=== PATIENT | female | born 2000 | race Caucasian/White ===

== ENCOUNTER 2022-02-02 00:10 | Emergency (ER) | payer OTHER ==
[2022-02-02] MEDS ORDERED: NA CHLORIDE 0.9% 1,000 ML ONE (00:56)
[2022-02-02 01:23] LABS: Urine Blood 3+ (Negative); Urine Glucose Negative (Negative); Urine Protein 2+ (Negative)
--- NOTE | 2022-02-02 01:58 | ER ---
Nurse's Notes [facility] Name: Nahomy Chavez Age: 21 yrs Sex: Female : 2000 Arrival Date: 02/02/2022 Time: 00:13 Bed 7 Private MD: Diagnosis: Dysmenorrhea, unspecified Presentation: 02/02 00:50 Chief complaint: Patient states: I am currently on my period. I am bleeding but it jb4 seems like the normal amount. I am having worse than normal abdominal pain and wanted to get checked out. Coronavirus screen: At this time, the client does not indicate any symptoms associated with coronavirus-19. Ebola Screen: No symptoms or risks identified at this time. Initial Sepsis Screen: Does the patient meet any 2 criteria? No. Patient's initial sepsis screen is negative. Does the patient have a suspected source of infection? No. Patient's initial sepsis screen is negative. Risk Assessment: Do you want to hurt yourself or someone else? Patient reports no desire to harm self or others. Onset of symptoms was February 02, 2022. Transition of care: patient was not received from another setting of care. 00:50 Method Of Arrival: Ambulatory jb4 00:50 Acuity: YOBANI 3 jb4 Triage Assessment: 02:10 General: Appears in no apparent distress. Behavior is calm, cooperative. 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 - Social history:: Smoking status: Patient denies any tobacco usage or history of. Patient uses alcohol, occasionally. - Family history:: not pertinent. Screenin:06 Abuse screen: Denies threats or abuse. Denies injuries from another. Nutritional tw5 screening: No deficits noted. Tuberculosis screening: No symptoms or risk factors identified. Fall Risk None identified. Assessment: 01:06 General: Reports "for the past 5 hours I have been cramping really bad with heavy tw5 bleeding. However I just went to the bathroom and passed a really larg clot, and now I feel better." Patient denies being . "Now it just feels like my regular period.". Pain: Complains of pain in suprapubic area, right lower quadrant and left lower quadrant Pain currently is 4 out of 10 on a pain scale. Quality of pain is described as crampy. Neuro: No deficits noted. : Urine is blood tinged, Reports vaginal bleeding that is bright red, with clots, heavy flow. Vital Signs: 00:50 BP 106 / 76; Pulse 65; Resp 16; Temp 97.8(TE); Pulse Ox 100% on R/A; Weight 65.77 kg jb4 (R); Height 5 ft. 6 in. (167.64 cm) (R); Pain 9/10; 01:06 BP 97 / 59; Pulse 49; Resp 18; Pulse Ox 100% on R/A; tw5 00:50 Body Mass Index 23.40 (65.77 kg, 167.64 cm) jb4 ED Course: 00:13 Patient arrived in ED. bp1 00:46 Wesley Schilling MD is Attending Physician. michael 00:48 Sri Paris is Primary Nurse. tw5 00:52 Triage completed. jb4 00:52 Arm band placed on right wrist. jb4 01:06 Patient has correct armband on for positive identification. Placed in gown. Bed in low tw5 position. Call light in reach. Side rails up X 1. bull bucker on. Pulse ox on. NIBP on. Door closed. Noise minimized. Moved to private room. Warm blanket given. Verbal reassurance given. 01:06 Initial lab(s) drawn, by me, sent to lab. Urine collected:. Inserted saline lock: 20 tw5 gauge in right antecubital area, using aseptic technique. Blood collected. 01:16 Quantitative Hcg Sent. tw5 01:16 Abo/rh Typing Sent. tw5 01:16 Basic Metabolic Panel Sent. tw5 01:16 CBC with Diff Sent. tw5 01:46 US Transvaginal Ob In Process Unspecified. EDMS 01:57 Mona Rivera MD is Referral Physician. michael 02:10 No provider procedures requiring assistance completed. IV discontinued, intact, kl bleeding controlled, No redness/swelling at site. Administered Medications: 01:16 Drug: NS 0.9% 1000 ml Route: IV; Rate: 1 bolus; Site: right antecubital; tw5 02:08 Follow up: IV Status: Completed infusion; IV Intake: 1000ml 02:09 Not Given (Patient Refused): Ketorolac 30 mg IVP once kl Medication: 01:06 VIS not applicable for this client. tw5 Intake: 02:08 IV: 1000ml; Total: 1000ml. Outcome: 01:57 Discharge ordered by . michael 02:10 Discharged to home ambulatory. 02:10 Condition: stable 02:10 Discharge instructions given to patient, Instructed on discharge instructions, follow up and referral plans. medication usage, Demonstrated understanding of instructions, follow-up care, medications, Prescriptions given X 1. 02:11 Patient left the ED. Signatures: Dispatcher [employer] EDMS Janine Vences RN RN kl Anderson, Corey, MD MD cha Bryson, James, RN RN jbVanessa Owens Tiffany 5
--- NOTE | 2022-02-02 01:58 | EDPHYS ---
Physician Documentation [facility] Name: Nahomy Chavez Age: 21 yrs Sex: Female : 2000 Arrival Date: 02/02/2022 Time: 00:13 Bed 7 Private MD: ED Physician Wesley Schilling HPI: 02/02 01:54 This 21 yrs old Female presents to ER via Ambulatory with complaints of michael Vaginal Bleeding, Abdominal Cramping. 01:54 The patient presents with vaginal bleeding that is heavy. Onset: The symptoms/episode michael began/occurred just prior to arrival, last night. Modifying factors: The symptoms are alleviated by nothing, the symptoms are aggravated by nothing. Associated signs and symptoms: The patient has no apparent associated signs or symptoms. Severity of symptoms: At their worst the symptoms were moderate, in the emergency department the symptoms have improved, moderately. The patient has experienced similar episodes in the past. 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 - Social history:: Smoking status: Patient denies any tobacco usage or history of. Patient uses alcohol, occasionally. - Family history:: not pertinent. ROS: 01:54 Constitutional: Negative for fever, chills, and weight loss, Eyes: Negative for injury, michael pain, redness, and discharge, ENT: Negative for injury, pain, and discharge, Neck: Negative for injury, pain, and swelling, Cardiovascular: Negative for chest pain, palpitations, and edema, Respiratory: Negative for shortness of breath, cough, wheezing, and pleuritic chest pain, Back: Negative for injury and pain, : Negative for injury, bleeding, discharge, and swelling, MS/Extremity: Negative for injury and deformity, Skin: Negative for injury, rash, and discoloration, Neuro: Negative for headache, weakness, numbness, tingling, and seizure, Psych: Negative for depression, anxiety, suicide ideation, homicidal ideation, and hallucinations, Allergy/Immunology: Negative for hives, rash, and allergies, Endocrine: Negative for neck swelling, polydipsia, polyuria, polyphagia, and marked weight changes. 01:54 Abdomen/GI: Positive for abdominal pain, of the suprapubic area. Exam: 01:54 Constitutional: This is a well developed, well nourished patient who is awake, alert, michael and in no acute distress. Head/Face: Normocephalic, atraumatic. Eyes: Pupils equal round and reactive to light, extra-ocular motions intact. Lids and lashes normal. Conjunctiva and sclera are non-icteric and not injected. Cornea within normal limits. Periorbital areas with no swelling, redness, or edema. ENT: Nares patent. No nasal discharge, no septal abnormalities noted. Tympanic membranes are normal and external auditory canals are clear. Oropharynx with no redness, swelling, or masses, exudates, or evidence of obstruction, uvula midline. Mucous membranes moist. Neck: Trachea midline, no thyromegaly or masses palpated, and no cervical lymphadenopathy. Supple, full range of motion without nuchal rigidity, or vertebral point tenderness. No Meningismus. Chest/axilla: Normal chest wall appearance and motion. Nontender with no deformity. No lesions are appreciated. Cardiovascular: Regular rate and rhythm with a normal S1 and S2. No gallops, murmurs, or rubs. Normal PMI, no JVD. No pulse deficits. Respiratory: Lungs have equal breath sounds bilaterally, clear to auscultation and percussion. No rales, rhonchi or wheezes noted. No increased work of breathing, no retractions or nasal flaring. Abdomen/GI: Soft, non-tender, with normal bowel sounds. No distension or tympany. No guarding or rebound. No evidence of tenderness throughout. Back: No spinal tenderness. No costovertebral tenderness. Full range of motion. Skin: Warm, dry with normal turgor. Normal color with no rashes, no lesions, and no evidence of cellulitis. MS/ Extremity: Pulses equal, no cyanosis. Neurovascular intact. Full, normal range of motion. Neuro: Awake and alert, GCS 15, oriented to person, place, time, and situation. Cranial nerves II-XII grossly intact. Motor strength 5/5 in all extremities. Sensory grossly intact. Cerebellar exam normal. Normal gait. Psych: Awake, alert, with orientation to person, place and time. Behavior, mood, and affect are within normal limits. Vital Signs: 00:50 BP 106 / 76; Pulse 65; Resp 16; Temp 97.8(TE); Pulse Ox 100% on R/A; Weight 65.77 kg jb4 (R); Height 5 ft. 6 in. (167.64 cm) (R); Pain 9/10; 01:06 BP 97 / 59; Pulse 49; Resp 18; Pulse Ox 100% on R/A; tw5 00:50 Body Mass Index 23.40 (65.77 kg, 167.64 cm) jb4 MDM: 00:47 Patient medically screened. [facility] 02/02 00:47 Order name: Abo/rh Typing [facility] 02/02 00:47 Order name: Basic Metabolic Panel [facility] 02/02 00:47 Order name: CBC with Diff [facility] 02/02 00:47 Order name: Quantitative Hcg [facility] 02/02 01:23 Order name: Urine --Ancillary (enter results) mw2 02/02 01:24 Order name: Urine Dipstick-Ancillary; Complete Time: 01:46 EDMS 02/02 00:47 Order name: IV Saline Lock; Complete Time: 01:16 [facility] 02/02 00:47 Order name: Labs collected and sent; Complete Time: 01:16 [facility] 02/02 00:47 Order name: NPO; Complete Time: 01:16 [facility] 02/02 00:47 Order name: Urine Dipstick-Ancillary (obtain specimen); Complete Time: 01:22 [facility] 02/02 00:47 Order name: Urine Test (obtain specimen); Complete Time: 01:22 [facility] 02/02 00:47 Order name: US Transvaginal Ob [facility] Administered Medications: 01:16 Drug: NS 0.9% 1000 ml Route: IV; Rate: 1 bolus; Site: right antecubital; tw5 02:08 Follow up: IV Status: Completed infusion; IV Intake: 1000ml kl 02:09 Not Given (Patient Refused): Ketorolac 30 mg IVP once kl Disposition Summary: 02/02/22 01:57 Discharge Ordered Location: Home michael Problem: new michael Symptoms: have improved michael Condition: Stable michael Diagnosis - Dysmenorrhea, unspecified michael Followup: michael - With: Private Physician - When: 2 - 3 days - Reason: Recheck today's complaints, Continuance of care, Re-evaluation by your physician Followup: michael - With: Mona Rivera MD - When: 2 - 3 days - Reason: Recheck today's complaints, Continuance of care, Re-evaluation by your physician Discharge Instructions: - Discharge Summary Sheet michael - Dysmenorrhea michael - Dysmenorrhea, [id number] michael Forms: - Medication Reconciliation Form michael - Thank You Letter michael - Antibiotic Education michael - Prescription Opioid Use michael Prescriptions: - Diclofenac Sodium 75 mg Oral tablet,delayed release (DR/EC) - take 1 tablet by ORAL route 2 times per day; 20 tablet; Refills: 0, Product michael Selection Permitted Signatures: Dispatcher [employer] EDWesley Victoria MD MD cha Bryson, James, RN RN jb4 Sri Paris tw5 Janine Venecs RN kl
[2022-02-02 02:16] LABS: Absolute Lymphocytes (CBC) 1.6 K/uL (0.7-4.9); Hematocrit 38.3 % (36.0-45.0); Lymphocytes % 19.6 % (15.3-44.8); RBC Red Blood Cell Count 4.26 M/uL (3.86-4.86)
[2022-02-02 02:19] LABS: BUN Blood Urea Nitrogen 12 mg/dL (7-18); Bicarbonate 28 mmol/L (21-32); Glomerular Filtration Rate 114 ml/min (=/>90); Glucose Level 105 mg/dL (74-106); Potassium 3.8 mmol/L (3.5-5.1); Sodium Level 138 mmol/L (136-145)
[2022-02-02 02:22] LABS: HCG, Quantitative < 1 mIU/mL (1-3)
[2022-02-02 02:51] VITALS: TEMP 97.8; O2SAT 100
[2022-02-02 02:57] VITALS: BP 97/59
--- NOTE | 2022-02-02 16:07 | RAD REPORT ---
EXAM DESCRIPTION: US PELVIS CLINICAL HISTORY: Pelvic pain. COMPARISON: None. TECHNIQUE: Grayscale, color Doppler, and spectral Doppler ultrasound images of the pelvis were obtai alexandro. FINDINGS: The uterus is anteverted and measures 7.0 x 2.9 x 3.7 cm. The endometrium is 5 mm in thick ness. No intrauterine fibroids. The cervix is closed. The right ovary was not seen due to overlying bowel gas. Left ovary measures 1.6 x 1.0 x 1.2 cm and c ontains normal color Doppler blood flow. No pelvic free fluid is seen. IMPRESSION: No acute intrapelvic findings. Electronically signed by: Rambo Angulo MD 02/02/2022 10:40 PM CDT Due to temporary technical issues with the PACS/Fluency reporting system, reports are being signed by the in house radiologists without review as a courtesy to insure prompt reporting. The interpreting radiologist is fully responsible for the content of the report.
== END 2022-02-02 02:11 | disposition home or self-care (01) ==
LOC: ER 00:10
DX: N94.6 Dysmenorrhea, unspecified (principal)
CPT/HCPCS: 85025; 80048; 36415; 86900; 81025; 86901; 84702; 81003; 76817; 96360; 99284; J7030